=== PATIENT | female | born 1990 | race Two or more races ===

== ENCOUNTER → 2022-04-23 | Outpatient (CLI) | payer MEDICAID ==
[2022-04-23 11:01] LABS: Chol/HDL Ratio 7.08 Ratio; LDL Cholesterol,Calculated 183.9 mg/dL (0.0-131.0)
[2022-04-23 11:03] LABS: Insulin Level 31.7 mIU/mL (3.0-25.0)
[2022-04-23 15:52] LABS: Hepatitis C IgG Antibody Nonreactive (Nonreactive)
[2022-04-23 16:19] LABS: Basophils # (A) 0.06 X 10*3/uL (0.00-0.10); Basophils % (A) 0.8 %; Eosinophils # (A) 0.14 X 10*3/uL (0.04-0.35); Eosinophils % (A) 1.8 %; HCT 48.2 % (37.2-46.3); HGB 15.4 g/dL (12.0-15.0); Immature Grans, Automated 0.3 %; Lymphocytes # (A) 2.72 X 10*3/uL (0.90-5.00); Lymphocytes % (A) 35.4 %; MCV 87.6 fL (80.0-97.0); Mean Platelet Volume 10.1 fL (9.5-12.2); Monocytes # (A) 0.41 X 10*3/uL (0.20-1.00); Monocytes % (A) 5.3 %; NRBC Per 100 WBC 0 /100 WBCS (0.0-0.0); Neutrophils # (A) 4.34 X 10*3/uL (1.80-7.70); Neutrophils % (A) 56.4 %; Platelet Count 311 X 10*3/uL (140-440); RDW 12.1 % (11.5-14.5); WBC 7.69 X 10*3/uL (4.50-10.00)
== END | disposition home or self-care (01) ==
LOC: LABWHC1 07:10
PROVIDERS: ATTEND Family Medicine
DX: Z11.59 Encounter for screening for other viral diseases (principal); E28.2 Polycystic ovarian syndrome
CPT/HCPCS: 36415; 80061; 82627; 83036; 83525; 84402; 84439; 84443; 85025; 86803

== ENCOUNTER → 2023-11-09 | Outpatient (CLI) | payer MEDICAID ==
--- NOTE | 2023-11-09 08:15 | USB ---
Reason for Exam: Clinical finding. Patient History: Menarche at age 14. Technique: Method: Targeted. Findings: The upper outer quadrant of the left breast, the area of palpable concern of the left breast and the axilla of the left breast were scanned. The palpable abnormality there is a hypoechoic subcutaneous nodule measuring 0.6 x 0.6 x 0.4 cm. This could be a small sebaceous cyst. Clinical management is recommended. Follow-up 6 months can be performed. Incidental note is a normal-appearing left axillary lymph nodes. Axillary tail appears clear. Overall Assessment: Probably benign, BI-RAD 3 Management: Diagnostic Breast Ultrasound of the left breast in 6 months. A clinical breast exam by your physician is recommended on an annual basis and results should be correlated with mammographic findings. This exam should not preclude additional follow-up of suspicious palpable abnormalities. Results were given to the patient verbally at the time of exam. Electronically signed and approved by: Bin Noonan D.O. Radiologis
== END | disposition home or self-care (01) ==
LOC: RADMAMWWP 07:27
PROVIDERS: ATTEND Surgery
DX: N63.21 Unspecified lump in the left breast, upper outer quadrant (principal)